=== PATIENT | male | born 1940 | race Caucasian/White ===

== ENCOUNTER 2017-05-18 13:18 | Emergency (ER) | payer MEDICARE ==
[~2017-05-18] VITALS: Ht 182.9 cm; Wt 128.0 kg
[2017-05-18 13:19] VITALS: BP 119/61
[2017-05-18] MEDS ORDERED: CALC1TAB42 PO (13:38)
[2017-05-18] MEDS ORDERED: ALFU10TA2 PO (13:38)
[2017-05-18] MEDS ORDERED: ASPI1TAB15 PO (13:38)
[2017-05-18] MEDS ORDERED: SIMV10TA2 PO (13:38)
[2017-05-18] MEDS ORDERED: LEUP375KIT IM (13:39)
[2017-05-18] MEDS ORDERED: ENOXAPARIN 150 MG/ML SYR (J1650) SC ONE (16:00)
[2017-05-18] MEDS ORDERED: LOVE0.01 SC (16:18)
== END 2017-05-18 16:23 | disposition home or self-care (01) ==
LOC: M ED 13:54
DX: I82.522 Chronic embolism and thrombosis of left iliac vein (principal); C61 Malignant neoplasm of prostate; E78.5 Hyperlipidemia, unspecified; Z90.89 Acquired absence of other organs; Z79.82 Long term (current) use of aspirin; Z79.899 Other long term (current) drug therapy
CPT/HCPCS: 96372; 99282; J1650